=== PATIENT | male | born 1985 | race Caucasian/White ===

== ENCOUNTER 2021-07-31 08:00 | Outpatient (CLI) | payer OTHER ==
[2021-07-31 14:50] LABS: BASOPHILS % (AUTO) 0.4 %; EOSINOPHILS # (AUTO) 0.1 10^3/uL (0.0-0.7); EOSINOPHILS % (AUTO) 0.5 %; HCT - HEMATOCRIT 47.3 % (42.0-52.0); HGB - HEMOGLOBIN 16.3 g/dL (14.0-18.0); LYMPHOCYTES # (AUTO) 1.7 10^3/uL (1.5-3.5); LYMPHOCYTES % (AUTO) 18.2 %; MEAN CORPUSCULAR HEMOGLOBIN 31.2 pg (27.0-31.0); MEAN CORPUSCULAR HGB CONC 34.5 g/dL (32.0-36.0); MEAN CORPUSCULAR VOLUME 90.6 fL (80.0-94.0); MEAN PLATELET VOLUME 10.5 fL (7.4-11.4); MONOCYTES # (AUTO) 0.8 10^3/uL (0.0-1.0); MONOCYTES % (AUTO) 8.9 %; NEUTROPHILS # (AUTO) 6.8 10^3/uL (1.5-6.6); NEUTROPHILS % (AUTO) 71.6 %; PLT - PLATELET COUNT 237 10^3/uL (130-450); RED BLOOD COUNT 5.22 10^6/uL (4.70-6.10); RED CELL DISTRIBUTION WIDTH 12.5 % (12.0-15.0); WHITE BLOOD COUNT 9.5 x10^3/uL (4.8-10.8)
[2021-07-31 15:14] LABS: CALCIUM 9.9 mg/dL (8.5-10.3); CREATININE 0.8 mg/dL (0.6-1.2); MAGNESIUM 2.2 mg/dL (1.7-2.8); POTASSIUM 3.7 mmol/L (3.5-5.0); URIC ACID 7.5 mg/dL (2.6-7.2)
[2021-07-31 15:44] LABS: THYROID STIMULATING HORMONE 1.29 uIU/mL (0.34-5.60)
== END 2021-07-31 23:59 | disposition home or self-care (01) ==
LOC: LAB.S 08:00
PROVIDERS: ATTEND Emergency Medicine
DX: M10.9 Gout, unspecified (principal); L02.612 Cutaneous abscess of left foot
CPT/HCPCS: 36415; 80048; 83735; 84443; 84550; 85025; 87070; 87205

== ENCOUNTER 2021-08-21 08:00 | Outpatient (CLI) | payer OTHER ==
--- NOTE | 2021-08-21 14:58 | XRAY Report ---
PROCEDURE: Lumbar Spine 2 View INDICATIONS: LOW BACK PAIN TECHNIQUE: 4 views of the lumbar spine were acquired. COMPARISON: None. FINDINGS: Bones: 5 [id number] vertebrae are present. There is normal bony alignment. There is a compress ion fracture of L1 with 50% anterior height loss. There are displaced fragments in the anterior colum n.. No retropulsion is identified.. No suspicious bony lesions. There is facet arthropathy in the l ower lumbar spine. Soft tissues: Overlying bowel gas pattern is normal. No suspicious soft tissue calcifications. IMPRESSION: Compression fracture of L1 with 50% height loss and displaced fragments in the anterior column. Recommend CT of the lumbar spine. Findings were discussed with Al Royal PA-C at 3:00 PM on 08/21/2021. Reviewed by: Darinel Duke on 08/21/2021 2:56 PM PST Approved by: Darinel Duke on 08/21/2021 2:56 PM PST Station ID: [id number]
--- NOTE | 2021-08-21 16:32 | XRAY Report ---
PROCEDURE: Chest 2 View X-Ray INDICATIONS: THORACIC BACK PAIN TECHNIQUE: 2 view(s) of the chest. COMPARISON: None. FINDINGS: Surgical changes and devices: None. Lungs and pleura: No pleural effusions or pneumothorax. Lungs are clear. Mediastinum: Mediastinal contours are normal. Heart size is normal. Bones and chest wall: No suspicious bony abnormalities. Soft tissues appear unremarkable. IMPRESSION: No acute cardiopulmonary disease process. Reviewed by: Kindra Delatorre MD, PhD on 08/21/2021 4:31 PM PST Approved by: Kindra Delatorre MD, PhD on 08/21/2021 4:31 PM PST Station ID: [id number]
== END 2021-08-21 23:59 | disposition home or self-care (01) ==
LOC: DI.S 08:00
PROVIDERS: ATTEND Physician Assistant
DX: M54.6 Pain in thoracic spine (principal); S32.019A Unspecified fracture of first lumbar vertebra, initial encounter for closed fracture

== ENCOUNTER 2021-09-17 09:36 | Outpatient (CLI) | payer OTHER ==
--- NOTE | 2021-09-17 10:03 | XRAY Report ---
PROCEDURE: Lumbar Spine 2 View INDICATIONS: CLOSED BURST FRACTURE OF LUMBAR VERTERBRA TECHNIQUE: 3 views of the lumbar spine were acquired. COMPARISON: 08/21/2021 FINDINGS: Bones: Wedge shaped 50% anterior height loss at the L1 is again noted with small retropulsed fracture fragment. No change from the prior exam. There is normal bone mineralization present. Remainder the vertebral body height and alignment is maintained. Sclerotic facet joints noted in the lower lumbar s pine. Soft tissues: Overlying bowel gas pattern is normal. No suspicious soft tissue calcifications. IMPRESSION: Stable L1 compression fracture with minimal retropulsed fracture fragments Reviewed by: Jam Friedman MD on 09/17/2021 9:02 AM [place] Approved by: Jam Friedman MD on 09/17/2021 9:02 AM [facility] Station ID: [id number]
== END 2021-09-17 09:37 | disposition home or self-care (01) ==
LOC: DI.S 09:36
PROVIDERS: ATTEND Neurological Surgery
DX: S32.011D Stable burst fracture of first lumbar vertebra, subsequent encounter for fracture with routine healing (principal)